=== PATIENT | female | born 1980 ===

== ENCOUNTER 2017-05-30 16:14 | Emergency (ER) | payer SELFPAY ==
[2017-05-30 16:21] VITALS: BP 114/74; PULSE 69; RESP 18; TEMP 98.1; O2SAT 100
--- NOTE | 2017-05-30 17:08 | ED PDOC ---
HPI: General Adult Time Seen by Provider: 05/30/17 16:44 Chief Complaint (Nursing): Abdominal Pain History Per: Patient Additional Complaint(s): Pt. states since Friday she's had pelvic pain associated with dysuria. Reports pelvic pain radiates to her lower back pain. Denies flank pain, fever, hematuria, incontinence, fever, N/V/D, abdominal pain. Past Medical History Reviewed: Historical Data, Nursing Documentation, Vital Signs Vital Signs: Last Vital Signs Temp 98.1 F 05/30/17 16:17 Pulse 69 05/30/17 16:17 Resp 18 05/30/17 16:17 BP 114/74 05/30/17 16:17 Pulse Ox 100 05/30/17 17:09 - Family History Family History: States: No Known Family Hx - Home Medications Home Medications: Ambulatory Orders Medication Instructions Recorded Nitrofurantoin Macrocrystals 100 mg PO BID #14 cap 05/30/17 [Macrobid] - Allergies Allergies/Adverse Reactions: Allergies Allergy/AdvReac Type Severity Reaction Status Date / Time No Known Allergies Allergy Verified 05/30/17 16:17 Review of Systems ROS Statement: Except As Marked, All Systems Reviewed And Found Negative Genitourinary Female: Positive for: Dysuria, Pelvic Pain Physical Exam - Physical Exam Appears: Positive for: Well, Non-toxic, No Acute Distress Skin: Positive for: Normal Color, Warm. Negative for: Rash Eye Exam: Positive for: Normal appearance Gastrointestinal/Abdominal: Positive for: Normal Exam, Bowel Sounds, Soft. Negative for: Tenderness Back: Positive for: Normal Inspection. Negative for: L CVA Tenderness, R CVA Tenderness Extremity: Positive for: Normal ROM Neurologic/Psych: Positive for: Alert, Oriented. Negative for: Aphasia, Facial Droop - Laboratory Results Urine POC: Negative Urine dip results: Positive for: Leukocyte Esterase (small), Blood (moderate). Negative for: Nitrate, Ketones, Glucose, Bilirubin, Protein - ECG O2 Sat by Pulse Oximetry: 100 Disposition - Clinical Impression Clinical Impression: UTI (urinary tract infection) - Patient ED Disposition Is Patient to be Admitted: No - Disposition Referrals: [facility] [Outside] Disposition: Routine/Home Disposition Time: 17:56 Condition: STABLE Prescriptions: Nitrofurantoin Macrocrystals [Macrobid] 100 mg PO BID #14 cap Instructions: Urinary Tract Infection in Women (ED) Print Language: LAO
== END 2017-05-30 18:58 | disposition home or self-care (01) ==
LOC: H.ER 16:14
DX: N39.0 Urinary tract infection, site not specified (principal)

== ENCOUNTER 2018-09-28 14:43 | Emergency (ER) | payer OTHER, SELFPAY ==
[2018-09-28 15:03] VITALS: TEMP 98.9; O2SAT 99
--- NOTE | 2018-09-28 16:52 | ED PDOC ---
HPI: Back Time Seen by Provider: 09/28/18 16:23 Chief Complaint (Nursing): Back Pain Chief Complaint (Provider): Back pain History Per: Patient History/Exam Limitations: no limitations Onset/Duration Of Symptoms: Other (x1 year) Current Symptoms Are (Timing): Still Present Quality Of Discomfort: Aching, Pressure Pain Scale Rating Of: 8 Additional Complaint(s): 38 year old female presents to the ED complaining of pressure and aching like mid back pain for 1 year. Patient states pain is worse with movement and someti mes takes aspirin for pain. She last took aspirin at 07:00 this morning with no relief. She rates pain an 07/10. LMP was September 04. Denies fever/chills, SOB/cough, chest pain, abdominal pain, N/V/D, urinary symptoms, saddle anesthesia, numbness/weakness, headache/dizziness. PMD: none Past Medical History Reviewed: Historical Data, Nursing Documentation, Vital Signs Vital Signs: Last Vital Signs Temp 98.9 F 09/28/18 15:03 Pulse 72 09/28/18 15:03 Resp 19 09/28/18 15:03 BP 110/63 09/28/18 15:03 Pulse Ox 99 09/28/18 15:03 - Medical History PMH: No Chronic Diseases - Surgical History Surgical History: - Family History Family History: States: Unknown Family Hx - Social History Current smoker - smoking cessation education provided: No Alcohol: None Drugs: Denies - Home Medications Home Medications: Ambulatory Orders Medication Instructions Recorded Nitrofurantoin Macrocrystals 100 mg PO BID #14 cap 05/30/17 [Macrobid] Cyclobenzaprine [Cyclobenzaprine 10 mg PO Q8 PRN #12 tab 09/28/18 HCl] RX: Naproxen 500 mg PO BID PRN #20 tab 09/28/18 - Allergies Allergies/Adverse Reactions: Allergies Allergy/AdvReac Type Severity Reaction Status Date / Time No Known Allergies Allergy Verified 05/30/17 16:17 Review of Systems ROS Statement: Except As Marked, All Systems Reviewed And Found Negative Musculoskeletal: Positive for: Back Pain Physical Exam - Reviewed Nursing Documentation Reviewed: Yes Vital Signs Reviewed: Yes - Physical Exam Comments: GENERAL APPEARANCE: Patient is awake, alert, oriented x 3, in no acute distress. Resting comfortably SKIN: Warm, dry; (-) cyanosis. EYES: (-) conjunctival pallor. ENMT: Mucous membranes moist. NECK: Supple, FROM (-) tenderness, (-) stiffness, (-) lymphadenopathy. CHEST AND RESPIRATORY: (-) rales, (-) rhonchi, (-) wheezes; breath sounds equal bilaterally. Respirations even and nonlabored. HEART AND CARDIOVASCULAR: (-) irregularity ABDOMEN AND GI: Soft; (-) tenderness (-) guarding (-) distention (-) CVA tenderness; (-) palpable mass. BACK: (+) diffuse parathoracic and paralumbar tenderness, (-) midline tenderness, (-) deformity. EXTREMITIES: (-) deformity. Distal pulses good bilaterally. NEURO AND PSYCH: Mental status as above. Intact sensation bilaterally. Gait: steady. Speech: clear. (-) facial asymmetry - Laboratory Results Urine POC: Negative Urine dip results: Positive for: Blood (lysed). Negative for: Leukocyte Esterase, Nitrate, Ketones, Glucose, Bilirubin, Protein - ECG O2 Sat by Pulse Oximetry: 99 (RA) Pulse Ox Interpretation: Normal Medical Decision Making Medical Decision Making: Initial Impression: Back pain, muscle spasm Initial Plan: --ED urine --ED urine dipstick --Flexeril 10mg PO (not driving) --Toradol 30mg IM Upreg: negtaive 1800 Upreg: negative Udip reviewed and unremarkable. On re-evaluation, patient reports improvement of symptoms. On exam, patient remains AAOx3, in no acute distress. Lungs clear to auscultation, cardiac RRR, repeat neuro exam shows no focal findings. Vitals stable. Lab/Diagnostic results d/w the patient in great detail. Diagnosis of chronic back pain, musculoskeletal pain/spasm d/w the patient. Based on history, exam and diagnostic results, plan will be for outpatient follow up with clinic/ortho. Patient instructed to follow-up with pmd / referral provided / the clinic in 1- 2 days without fail. Advised to take medication as prescribed. Return to the emergency room at any time for any new or worsening symptoms. Patient states she fully agrees with and understands discharge instructions. States that she agrees with the plan and disposition. Verbalized and repeated discharge instructions and plan. I have given the patient opportunity to ask any additional questions. Scribe Attestation: Documented by Matt Hurd acting as a scribe for Lupe AMADOR Provider Scribe Attestation: All medical record entries made by the Scribe were at my direction and personally dictated by me. I have reviewed the chart and agree that the record accurately reflects my personal performance of the history, physical exam, medical decision making, and the department course for this patient. I have also personally directed, reviewed, and agree with the discharge instructions and disposition. Disposition - Clinical Impression Clinical Impression: Back pain, Mid back pain, Muscle spasm of back - Patient ED Disposition Is Patient to be Admitted: No Counseled Patient/Family Regarding: Studies Performed, Diagnosis, Need For Followup, Rx Given - Disposition Referrals: Rayray Maria III, MD [Staff Provider] - [facility] [Outside] Disposition: Routine/Home Disposition Time: 18:05 Condition: IMPROVED Additional Instructions: La atencin mdica de emergencia que recibi hoy se dirigi a benny sntomas agudos. Si le recetaron algn medicamento, llnelo y tmelo segn las indicaciones. Los sntomas pueden tardar varios valderrama en resolverse. Regrese al Departamento de Emergencias si benny sntomas empeoran, no mejoran o si tiene otros problemas. Comunquese con lorenzo mdico dentro de 2 valderrama para tara nueva evaluacin y kimberley un seguimiento o llame a stephanie de los mdicos / clnicas a los que mello sido referido y que figuran en el formulario de Informacin de visita al paciente que se incluye en lorenzo paquete de aziza. Lleve con usted a lorenzo consulta de seguimiento toda la documentacin que recibi del aziza junto con los medicamentos que est tomando. Nuestro tratamiento no puede reemplazar la atencin mdica continua por parte de un proveedor de atencin primaria (PCP) fuera del departamento de emergencias. Prescriptions: Cyclobenzaprine [Cyclobenzaprine HCl] 10 mg PO Q8 PRN #12 tab PRN Reason: Muscle Spasm RX: Naproxen 500 mg PO BID PRN #20 tab PRN Reason: Pain, Moderate (4-7) Instructions: Low Back Pain (DC), Upper Back Pain, Back Exercises, Muscle Spasms (DC) Forms: [email or web address] (Ukrainian) Print Language: SINHALA - POA Present On Arrival: None
[2018-09-28] MEDS ORDERED: Povidone Iodine Topical 10% Sol ONE (17:44)
[2018-09-28 18:14] VITALS: BP 114/76; PULSE 73; RESP 17
== END 2018-09-28 18:13 | disposition home or self-care (01) ==
LOC: H.ER 14:43
DX: M54.9 Dorsalgia, unspecified (principal); G89.29 Other chronic pain; M62.830 Muscle spasm of back; Z79.82 Long term (current) use of aspirin
CPT/HCPCS: 81025; 96372; 99283; J1885